=== PATIENT | female | born 1980 | race Caucasian/White ===

== ENCOUNTER 2022-01-05 11:42 | Inpatient (IN) ==
[2022-01-05 12:03] LABS: Basophils % 0.1 % (0.0-0.8); Eosinophils % 0.2 % (0.00-10.9); Hematocrit 34.5 VOL% (35.7-47.0); Hemoglobin 11.2 GM/DL (12.0-16.0); Immature Granulocytes % 0.4 %; Immature Granulocytes Absolute 0.04 #; Lymphocytes # 1.3 10*3/uL (1.4-4.0); Lymphocytes % 13.2 % (21.3-54.2); Mean Corpuscular HGB Conc 32.5 GM/DL (32-36); Mean Corpuscular Volume 91.8 FL (87-102); Mean Platelet Volume 13.6 FL (9.6-12.0); Monocytes # 0.5 10*3/uL (0.11-0.8); Monocytes % 4.8 % (1.7-12.7); Neutrophils % 81.3 % (38.7-73.9); Platelet Count 147 T/CUMM (130-400); Red Blood Count 3.76 MC/CUMM (3.8-5.5); Red Cell Distribution Width 14.6 % (9.3-17.3); White Blood Count 10.1 T/CUMM (4-12)
[2022-01-05] MEDS ORDERED: ALBUTEROL/IPRATROPIUM 3 ML NEB RESP TX STA (12:03)
[2022-01-05] MEDS ORDERED: methylPREDNISolone SOD SUC 125 MG/2 ML VIAL IV STA (12:03)
[2022-01-05] MEDS ORDERED: ALBUTEROL NEB SOLN 5 MG/ML 20 ML/BOTTLE CONT NEB STA ×2 (12:03→13:30)
[2022-01-05] MEDS ORDERED: SODIUM CHLORIDE 0.9% 1,000 ML IV STA ×2 (12:04→13:30)
[2022-01-05 12:13] LABS: PT Patient Result 10.9 SECS (10.1-12.1); Partial Thromboplastin Time 41.7 SECS (23.7-32.9)
[2022-01-05 12:23] LABS: Alanine Aminotransferase 9 U/L (13-56); Albumin 2.8 G/DL (3.4-5.0); Alkaline Phosphatase 89 U/L (45-117); Aspartate Amino Transferase 5 U/L (0-37); Bilirubin,Total < 0.39 MG/DL (0.20-1.00); Blood Urea Nitrogen 8 MG/DL (7-18); Calcium 8.8 MG/DL (8.5-10.1); Carbon Dioxide 29 MMOL/L (21-32); Chloride 103 MMOL/L (98-107); Glucose 157 MG/DL (74-106); Osmolality,Calculated 279.4 MOS/KG (273-304); Potassium 3.8 MMOL/L (3.5-5.1); Sodium 140 MMOL/L (136-145); Total Protein 6.2 G/DL (6.4-8.2)
[2022-01-05] MEDS ORDERED: cefTRIAXone 1,000 MG in SODIUM CHLORIDE 0.9% 100 ML IV STA (13:23)
[2022-01-05] MEDS ORDERED: ONDANSETRON 4 MG/2 ML VIAL IV PRN (13:31)
[2022-01-05] MEDS ORDERED: ACETAMINOPHEN 325 MG TABLET PO PRN (13:31)
[2022-01-05] MEDS ORDERED: DOCUSATE SODIUM 100 MG CAPSULE PO PRN (13:31)
[2022-01-05] MEDS ORDERED: hydrALAZINE 20 MG/1 ML VIAL IV PRN (13:31)
[2022-01-05] MEDS ORDERED: diphenhydrAMINE CAP 25 MG CAPSULE PO PRN (13:31)
[2022-01-05] MEDS: AZITHROMYCIN INJ 500 MG in SODIUM CHLORIDE 0.9% 250 ML IV SCH (14:48)
[2022-01-05] MEDS: SODIUM CHLORIDE 0.9% 1,000 ML IV SCH (14:48)
[2022-01-05] MEDS: INSULIN LISPRO 100 UNIT/ML SUBCUT SCH ×2 (17:15→21:41)
[2022-01-05] MEDS: ALBUTEROL/IPRATROPIUM 3 ML NEB RESP TX SCH (20:00)
[2022-01-05] MEDS: guaiFENesin/DM ER 600-30 MG TABLET PO SCH (21:40)
[2022-01-05] MEDS: ENOXAPARIN 40 MG/0.4 ML SYRINGE SUBCUT SCH (21:40)
[2022-01-05] MEDS: INSULIN GLARGINE 100 UNIT/ML SUBCUT SCH (21:40)
[2022-01-05] MEDS: NICOTINE 21 MG/24 HR PATCH TRANSDERM PRN (21:41)
[2022-01-05] MEDS: methylPREDNISolone SOD SUC 40 MG/1 ML VIAL IV SCH (21:41)
[2022-01-05] MEDS ORDERED: DOXEPIN 100 MG CAPSULE PO PRN (22:50)
[2022-01-06] MEDS: QUEtiapine XR 50 MG TABLET PO SCH ×2 (00:14→21:23)
[2022-01-06] MEDS: DIVALPROEX 500 MG TABLET PO SCH ×2 (00:15→21:23)
[2022-01-06] MEDS: MONTELUKAST 10 MG TABLET PO SCH ×2 (00:15→21:24)
[2022-01-06] MEDS: ALBUTEROL/IPRATROPIUM 3 ML NEB RESP TX SCH ×4 (00:40→19:27)
[2022-01-06] MEDS: SODIUM CHLORIDE 0.9% 1,000 ML IV SCH ×2 (04:00→18:41)
[2022-01-06 05:34] LABS: Basophils % 0.1 % (0.0-0.8); Hematocrit 30.5 VOL% (35.7-47.0); Hemoglobin 9.9 GM/DL (12.0-16.0); Immature Granulocytes % 1.1 %; Immature Granulocytes Absolute 0.09 #; Lymphocytes # 0.9 10*3/uL (1.4-4.0); Lymphocytes % 10.9 % (21.3-54.2); Mean Corpuscular HGB Conc 32.5 GM/DL (32-36); Monocytes # 0.3 10*3/uL (0.11-0.8); Monocytes % 2.9 % (1.7-12.7); Platelet Count 133 T/CUMM (130-400); Red Blood Count 3.28 MC/CUMM (3.8-5.5); Red Cell Distribution Width 14.5 % (9.3-17.3); White Blood Count 8.5 T/CUMM (4-12)
[2022-01-06 06:11] LABS: Calcium 8.4 MG/DL (8.5-10.1); Osmolality,Calculated 290.7 MOS/KG (273-304); Potassium 3.7 MMOL/L (3.5-5.1); Risk Ratio 3.59; Thyroid Stimulating Hormone 0.824 uIU/ml (0.358-3.74); VLDL Cholesterol 16.6 MG/DL
[2022-01-06] MEDS: LEVOTHYROXINE 75 MCG TABLET PO SCH (06:12)
[2022-01-06] MEDS: methylPREDNISolone SOD SUC 40 MG/1 ML VIAL IV SCH ×3 (06:12→21:25)
[2022-01-06] MEDS: INSULIN LISPRO 100 UNIT/ML SUBCUT SCH ×4 (07:23→21:21)
[2022-01-06] MEDS ORDERED: OSELTAMIVIR 75 MG CAPSULE PO SCH (09:00)
[2022-01-06] MEDS: LIRAGLUTIDE SUBCUT SCH (09:27)
[2022-01-06] MEDS: cefTRIAXone 1,000 MG in SODIUM CHLORIDE 0.9% 100 ML IV SCH (09:27)
[2022-01-06] MEDS: ALPRAZolam 0.5 MG TABLET PO SCH ×2 (09:27→15:22)
[2022-01-06] MEDS: CHOLECALCIFEROL 5,000 UNIT TABLET PO SCH (09:28)
[2022-01-06] MEDS: GABAPENTIN 600 MG TABLET PO SCH ×3 (09:28→21:23)
[2022-01-06] MEDS: guaiFENesin/DM ER 600-30 MG TABLET PO SCH ×2 (09:28→21:24)
[2022-01-06] MEDS: PANTOPRAZOLE 40 MG TABLET PO SCH (09:28)
[2022-01-06] MEDS: INSULIN GLARGINE 100 UNIT/ML SUBCUT SCH ×2 (09:28→21:24)
[2022-01-06 11:21] LABS: % Iron Saturation 25.3 % (18-50)
[2022-01-06 11:28] LABS: Folate 10.09 NG/ML (5.38-24.0)
[2022-01-06] MEDS: AZITHROMYCIN INJ 500 MG in SODIUM CHLORIDE 0.9% 250 ML IV SCH (15:22)
[2022-01-06] MEDS: BUDESONIDE/FORMOTEROL 160-4.5 INHALER 6 GM INH SCH (21:20)
[2022-01-06] MEDS: OXcarbazepine 300 MG TABLET PO SCH (21:23)
[2022-01-06] MEDS: NICOTINE 21 MG/24 HR PATCH TRANSDERM PRN (21:24)
[2022-01-06] MEDS: ENOXAPARIN 40 MG/0.4 ML SYRINGE SUBCUT SCH (21:24)
[2022-01-07] MEDS: ALPRAZolam 0.5 MG TABLET PO SCH ×4 (00:34→21:12)
[2022-01-07] MEDS: ALBUTEROL/IPRATROPIUM 3 ML NEB RESP TX SCH ×4 (01:20→20:21)
[2022-01-07] MEDS: LEVOTHYROXINE 75 MCG TABLET PO SCH ×2 (03:49)
[2022-01-07] MEDS: methylPREDNISolone SOD SUC 40 MG/1 ML VIAL IV SCH ×4 (03:49→21:17)
[2022-01-07 05:52] LABS: Basophils % 0.2 % (0.0-0.8); Hematocrit 31.3 VOL% (35.7-47.0); Hemoglobin 10.1 GM/DL (12.0-16.0); Immature Granulocytes % 2.7 %; Immature Granulocytes Absolute 0.25 #; Lymphocytes # 1.1 10*3/uL (1.4-4.0); Lymphocytes % 12.2 % (21.3-54.2); Mean Corpuscular HGB Conc 32.3 GM/DL (32-36); Mean Corpuscular Volume 92.6 FL (87-102); Mean Platelet Volume 13.5 FL (9.6-12.0); Monocytes # 0.2 10*3/uL (0.11-0.8); Monocytes % 2.3 % (1.7-12.7); Neutrophils % 82.6 % (38.7-73.9); Platelet Count 151 T/CUMM (130-400); Red Blood Count 3.38 MC/CUMM (3.8-5.5); Red Cell Distribution Width 14.7 % (9.3-17.3); White Blood Count 9.1 T/CUMM (4-12)
[2022-01-07 06:17] LABS: Calcium 8.3 MG/DL (8.5-10.1); Osmolality,Calculated 294.7 MOS/KG (273-304); Potassium 4.3 MMOL/L (3.5-5.1)
[2022-01-07] MEDS: cefTRIAXone 1,000 MG in SODIUM CHLORIDE 0.9% 100 ML IV SCH (09:31)
[2022-01-07] MEDS: BUDESONIDE/FORMOTEROL 160-4.5 INHALER 6 GM INH SCH ×2 (09:33→21:14)
[2022-01-07] MEDS: SODIUM CHLORIDE 0.9% 1,000 ML IV SCH (09:33)
[2022-01-07] MEDS: GABAPENTIN 600 MG TABLET PO SCH ×3 (09:34→21:11)
[2022-01-07] MEDS: INSULIN GLARGINE 100 UNIT/ML SUBCUT SCH ×2 (09:34→21:16)
[2022-01-07] MEDS: INSULIN LISPRO 100 UNIT/ML SUBCUT SCH ×4 (09:34→21:15)
[2022-01-07] MEDS: PANTOPRAZOLE 40 MG TABLET PO SCH (09:35)
[2022-01-07] MEDS: LIRAGLUTIDE SUBCUT SCH (09:36)
[2022-01-07] MEDS: FERROUS SULFATE 325 MG TABLET PO SCH (09:36)
[2022-01-07] MEDS: CHOLECALCIFEROL 5,000 UNIT TABLET PO SCH (09:36)
[2022-01-07] MEDS: guaiFENesin/DM ER 600-30 MG TABLET PO SCH ×2 (13:49→21:12)
[2022-01-07] MEDS: AZITHROMYCIN 250 MG TABLET PO SCH (14:36)
[2022-01-07] MEDS: QUEtiapine XR 50 MG TABLET PO SCH (21:10)
[2022-01-07] MEDS: DIVALPROEX 500 MG TABLET PO SCH (21:11)
[2022-01-07] MEDS: OXcarbazepine 300 MG TABLET PO SCH (21:11)
[2022-01-07] MEDS: MONTELUKAST 10 MG TABLET PO SCH (21:14)
[2022-01-07] MEDS: ENOXAPARIN 40 MG/0.4 ML SYRINGE SUBCUT SCH (21:17)
[2022-01-08] MEDS: ALBUTEROL/IPRATROPIUM 3 ML NEB RESP TX SCH ×2 (01:31→07:09)
[2022-01-08] MEDS: methylPREDNISolone SOD SUC 40 MG/1 ML VIAL IV SCH (04:15)
[2022-01-08] MEDS: LEVOTHYROXINE 75 MCG TABLET PO SCH (05:43)
[2022-01-08] MEDS: CHOLECALCIFEROL 5,000 UNIT TABLET PO SCH (08:51)
[2022-01-08] MEDS: cefTRIAXone 1,000 MG in SODIUM CHLORIDE 0.9% 100 ML IV SCH (08:51)
[2022-01-08] MEDS: ALPRAZolam 0.5 MG TABLET PO SCH (08:51)
[2022-01-08] MEDS: AZITHROMYCIN 250 MG TABLET PO SCH (08:51)
[2022-01-08] MEDS: PANTOPRAZOLE 40 MG TABLET PO SCH (08:52)
[2022-01-08] MEDS: FERROUS SULFATE 325 MG TABLET PO SCH (08:52)
[2022-01-08] MEDS: INSULIN LISPRO 100 UNIT/ML SUBCUT SCH ×2 (08:52→11:48)
[2022-01-08] MEDS: GABAPENTIN 600 MG TABLET PO SCH (08:52)
[2022-01-08] MEDS: guaiFENesin/DM ER 600-30 MG TABLET PO SCH (08:52)
[2022-01-08] MEDS: LIRAGLUTIDE SUBCUT SCH (08:53)
[2022-01-08] MEDS: BUDESONIDE/FORMOTEROL 160-4.5 INHALER 6 GM INH SCH (08:53)
[2022-01-08] MEDS: INSULIN GLARGINE 100 UNIT/ML SUBCUT SCH ×2 (08:58→12:07)
[2022-01-08 12:16] VITALS: BP 148/94
[2022-01-09 10:56] LABS: Mycoplasma pneumoniae Ab Inter SEE COMMENTS; Mycoplasma pneumoniae Ab, IgG Positive (Negative); Mycoplasma pneumoniae Ab, IgM Negative (Negative)
== END 2022-01-08 12:51 | disposition home or self-care (01) | DRG 190 ==
LOC: EDBD → EDUNIT# → N.ED 11:42 → SUATTDRO 14:00 → N.5E 14:00
PROVIDERS: ADMIT Emergency Medicine; ATTEND Internal Medicine